=== PATIENT | female | born 1985 | race Caucasian/White ===

== ENCOUNTER 2016-08-01 00:39 | Observation (INO) | payer OTHER ==
[2016-08-01 02:19] LABS: BASO # 0.1 K/uL (0.0-0.2); BASO % 0.8 % (0.0-2.0); EOS # 0.6 K/uL (0.0-0.7); EOS % 5.7 % (0.0-4.0); HEMATOCRIT 36.4 % (34.0-47.0); LYMPH # 3.4 K/uL (1.0-4.3); LYMPH % 35.2 % (20.0-40.0); MEAN CELL VOLUME 81.3 fL (81.0-99.0); MEAN PLATELET VOLUME 7.9 fL (7.2-11.7); MONO # 0.4 K/uL (0.0-0.8); MONO % 4.2 % (0.0-10.0); NRBC % 0.1 % (0.0-2.0); RED CELL DISTRIBUTION WIDTH 21.1 % (11.5-14.5); WHITE BLOOD COUNT 9.7 K/uL (4.8-10.8)
[2016-08-01 02:21] LABS: RBC URINE 1 /hpf (0-3); URINE BILIRUBIN NEGATIVE (NEGATIVE); URINE BLOOD NEGATIVE (NEGATIVE); URINE COLOR Straw (YELLOW); URINE GLUCOSE (UA) NORMAL (Normal); URINE KETONE NEGATIVE (NEGATIVE); URINE LEUKOCYTE ESTERASE NEG Leu/uL (Negative); URINE PROTEIN NEGATIVE (NEGATIVE); URINE UROBILINOGEN NORMAL mg/dL (0.2-1.0); WBC URINE 1 /hpf (0-5)
[2016-08-01 02:26] LABS: CHLORIDE 101 mmol/L (98-107); SODIUM 138 mmol/L (132-148)
[2016-08-01 02:28] LABS: GFR AFRICAN-AMERICAN > 60
[2016-08-01 02:29] LABS: ALB/GLOB RATIO 1.3 (1.0-2.1); ALKALINE PHOSPHATASE 100 U/L (38-126); ALT/SGPT 23 U/L (9-52); AST/SGOT 19 U/L (14-36); BILIRUBIN,TOTAL 0.6 mg/dL (0.2-1.3); BLOOD UREA NITROGEN 14 mg/dL (7-17); CALCIUM 8.8 mg/dl (8.6-10.4); CARBON DIOXIDE 26 mmol/L (22-30); GLUCOSE,RANDOM 116 mg/dL (65-105); TOTAL PROTEIN 7.4 g/dL (6.3-8.3)
--- NOTE | 2016-08-01 03:58 | RAD ---
EXAM: XR Chest, 1 View CLINICAL HISTORY: 31 years old, female; Signs and symptoms; Shortness of breath; Additional info: SOB TECHNIQUE: Frontal view of the chest. COMPARISON: No relevant prior studies available. FINDINGS: The cardiomediastinal silhouette is partially obscured, and shifted to the right of midline. Elevation of the left hemidiaphragm is identified with multiple loops of dilated bowel present. The remainder of the lungs are otherwise clear. No subdiaphragmatic free air or pneumothorax. The trachea extends to the right of midline. IMPRESSION: Elevation of the left hemidiaphragm. Mass effect on the cardiac silhouette, which extends to the right of midline. Comparison with prior imaging is recommended.
--- NOTE | 2016-08-01 04:04 | C.PDOC ---
History Of Present Illness 31 year old female presents to the ED with complaints of shortness of breath. Patient is two months . As per , patient experienced shortness of breath episodes while and when [place] [facility] [place] told symptoms were due to however she is now experiencing similar symptoms of shortness of breath. Patient denies chest pain, breast feeding, or any other complaints at this time. Time Seen by Provider: 08/01/16 01:04 Chief Complaint (Nursing): Shortness Of Breath History Per: Patient History/Exam Limitations: no limitations Onset/Duration Of Symptoms: Persistent Current Symptoms Are (Timing): Still Present Associated Symptoms: denies: Fever, Chills, Sweating Recent travel outside of the [place]: No Past Medical History Reviewed: Historical Data, Nursing Documentation, Vital Signs Vital Signs: Last Vital Signs Temp 97.9 F 08/01/16 04:20 Pulse 64 08/01/16 04:20 Resp 18 08/01/16 04:20 BP 126/87 08/01/16 04:20 Pulse Ox 98 08/01/16 06:26 Family History: States: No Known Family Hx - Social History Hx Alcohol Use: No Hx Substance Use: No - Immunization History Hx Tetanus Toxoid Vaccination: No Hx Influenza Vaccination: No Hx Pneumococcal Vaccination: No Review Of Systems Constitutional: Negative for: Fever, Chills, Sweats Cardiovascular: Negative for: Chest Pain, Palpitations Respiratory: Positive for: Shortness of Breath. Negative for: Cough Gastrointestinal: Negative for: Nausea, Vomiting, Abdominal Pain, Diarrhea Genitourinary: Negative for: Dysuria Physical Exam - Physical Exam Appears: Non-toxic, No Acute Distress Skin: Warm, Dry Head: Atraumatic Oral Mucosa: Moist Neck: Supple Chest: Symmetrical, No Deformity Cardiovascular: Rhythm Regular Respiratory: No Rales, No Rhonchi, No Stridor, No Wheezing Gastrointestinal/Abdominal: Soft, No Tenderness, No Distention, No Guarding, No Rebound Extremity: Normal ROM, No Tenderness Neurological/Psych: Oriented x3 ED Course And Treatment - Laboratory Results Result Diagrams: 08/01/16 02:13 08/01/16 02:13 Interpretation Of ECG: Sinus arrythmia Rate From EC O2 Sat by Pulse Oximetry: 98 (room air ) - CT Scan/US XRAY chest frontal Other Rad Studies (CT/US): Read By Radiologist, Radiology Report Reviewed CT ABDOMEN/PELVIS W CONTRAST Other Rad Studies (CT/US): Read By Radiologist, Radiology Report Reviewed CT/US Interpretation: EXAM: CT Abdomen and Pelvis With Intravenous Contrast. CLINICAL HISTORY: 31 years old, female; Signs and symptoms; Other: S. O. B. ; Shortness of breath; Patient HX: Post. x1 month ago; Additional info: Post SOB. TECHNIQUE: Axial computed tomography images of the abdomen and pelvis with intravenous contrast. This CT. exam was performed using one or more of the following dose reduction techniques: automated. exposure control, adjustment of the mA and/or kV according to patient size, and/or use of iterative. reconstruction technique. Coronal and sagittal reformatted images were created and reviewed. CONTRAST: 100 mL of VISIPAQUE administered intravenously. COMPARISON: No relevant prior studies available. FINDINGS: Lower thorax: No acute findings. ABDOMEN: Liver: Unremarkable. No mass. Gallbladder and bile ducts: Unremarkable. No calcified stones. No ductal dilation. Pancreas: Unremarkable. No mass. No ductal dilation. Spleen: Unremarkable. No splenomegaly. Adrenals: Unremarkable. No mass. Kidneys and ureters: Unremarkable. No solid mass. No hydronephrosis. Stomach and bowel: Mild/moderate fecal retention with a few air-fluid levels suggesting a colonic. ileus. Appendix: No findings to suggest acute appendicitis. PELVIS: Bladder : Unremarkable. No mass. Reproductive: Unremarkable as visualized. ABDOMEN and PELVIS: Intraperitoneal space: Unremarkable. No free air. No significant fluid collection. Bones/joints: No acute fracture. No dislocation. Soft tissues: Unremarkable. Vasculature: Unremarkable. No abdominal aortic aneurysm. Lymph nodes: Unremarkable. No enlarged lymph nodes. IMPRESSION: Mild/moderate fecal retention with a few air-fluid levels suggesting a colonic ileus. CT CHEST W IV CONTRAST Other Rad Studies (CT/US): Read By Radiologist, Radiology Report Reviewed CT/US Interpretation: EXAM: CT Chest With Intravenous Contrast. CLINICAL HISTORY: 31 years old, female; Signs and symptoms; Other: S. O. B. ; Shortness of breath; Patient HX: Post. x1 month ago; Additional info: Post SOB. TECHNIQUE: Axial computed tomography images of the chest with intravenous contrast. This CT exam was. performed using one or more of the following dose reduction techniques: automated exposure. control, adjustment of the mA and/or kV according to patient size, and/or use of iterative. reconstruction technique. Coronal and sagittal reformatted images were created and reviewed. CONTRAST: 100 mL of VISIPAQUE administered intravenously. EXAM DATE/TIME: Exam ordered 08/01/2016 4:08 AM. COMPARISON: CR - CHEST PORTABLE 3:05:37 AM. FINDINGS: Lungs: Atelectasis in the right middle lobe. Pleural space: Unremarkable. No pneumothorax. No significant effusion. Heart: Unremarkable. No cardiomegaly. No significant pericardial effusion. Bones/ joints: Unremarkable. No acute fracture. No dislocation. Soft tissues: Unremarkable. Vasculature: Unremarkable. No thoracic aortic aneurysm. Lymph nodes: Unremarkable. No enlarged lymph nodes. Upper abdomen: Elevated left hemidiaphragm. IMPRESSION: No acute findings. Progress Note: EXAM: XR Chest, 1 View. CLINICAL HISTORY: 31 years old, female ; Signs and symptoms; Shortness of breath; Additional info: SOB. TECHNIQUE: Frontal view of the chest. COMPARISON: No relevant prior studies available. FINDINGS: The cardiomediastinal silhouette is partially obscured, and shifted to the right of midline. Elevation of. the left hemidiaphragm is identified with multiple loops of dilated bowel present. The remainder of the lungs are otherwise clear. No subdiaphragmatic free air or pneumothorax. The trachea extends to the right of midline. IMPRESSION: Elevation of the left hemidiaphragm. Mass effect on the cardiac silhouette, which extends to the right of midline. Comparison with prior imaging is recommended. Case was d/w pt's PMD who instructed to admit patient to 's service. Patient initially refused to be admitted. However after reviewing AMA form patient changed her mind and agreed to stay in the Hospital. Admitting informed us that is on the blue list. requested to be contacted. requested patient to be admitted to hospitalist service. Case was d/w who accepted patient to regular floor for observation. H &P will be done by the morning shift. Disposition - Disposition Referrals: Jimi Pizarro MD [Staff Provider] - Disposition: HOSPITALIZED Disposition Time: 06:03 Condition: FAIR Additional Instructions: Follow up with your PMD within 1-2 days. Return to ED immediately if feel worse. Instructions: Ileus (ED) - Clinical Impression Clinical Impression: Ileus, Dyspnea - Scribe Statement The provider has reviewed the documentation as recorded by the Chakaibe Alise Urban All medical record entries made by the Chakaibe were at my direction and personally dictated by me. I have reviewed the chart and agree that the record accurately reflects my personal performance of the history, physical exam, medical decision making, and the department course for this patient. I have also personally directed, reviewed, and agree with the discharge instructions and disposition. Decision To Admit - Pt Status Changed To: Hospital Disposition Of: Observation - . Bed Request Type: Regular Admitting Physician: Mychal Prasad Patient Diagnosis: Ileus, Dyspnea
[2016-08-01] MEDS ORDERED: Iodixanol 320 MG/ML 100 ML BOTTLE IV ONE (04:30)
[2016-08-01] MEDS ORDERED: Magnesium Citrate Oral SOL (300 ml) PO STA (06:48)
[2016-08-01] MEDS ORDERED: Magnesium Citrate Oral SOL (300 ml) ONE (07:10)
[2016-08-01 07:35] VITALS: RESP 20
--- NOTE | 2016-08-01 08:18 | CP.PCM.HP ---
<Genaro Lopez - Last Filed: 08/01/16 09:17> History of Present Illness - History of Present Illness History of Present Illness: CC: "Shortness of breath" HPI: Pt is a 31 year old F with a PMHx of anemia who presents to the ED with complaints of shortness of breath for a duration of 2 days. Pt reports that she has never experienced these symptoms before. She reports that that her symptoms are worse at night. Pt reports that she was not doing anything when the symptoms began. She denies having a cough, but reports that she has phlegm in her throat. Pt also reports that her legs have gotten more swollen. Pt denies fever, chills, chest pain, nausea, vomiting, diarrhea, dysuria, headache , dizziness. PMD: Dr. Pizarro PMHx: Anemia Home medications: Iron tablets 3x/day Past Surgical Hx: denies Allergies: NKDA Social Hx: denies hx of tobacco, alcohol, drug abuse Family Hx: denies any significant family hx Present on Admission - Present on Admission Any Indicators Present on Admission: No Review of Systems - Constitutional Constitutional: absent: Chills, Fever - EENT Ears: absent: Decreased Hearing, Dizziness - Cardiovascular Cardiovascular: Dyspnea, Leg Edema. absent: Chest Pain, Palpitations - Respiratory Respiratory: Dyspnea. absent: Cough, Hemoptysis, Wheezing - Gastrointestinal Gastrointestinal: absent: Abdominal Pain, Diarrhea, Hematochezia, Nausea, Vomiting - Genitourinary Genitourinary: absent: Dysuria - Musculoskeletal Musculoskeletal: absent: Atrophy, Back Pain - Neurological Neurological: absent: Dizziness, Headaches - Psychiatric Psychiatric: absent: Confusion - Hematologic/Lymphatic Hematologic: absent: Easy Bleeding, Easy Bruising Past Patient History - Past Social History Smoking Status: Never Smoked - PSYCHIATRIC Hx Substance Use: No Meds Allergies/Adverse Reactions: Allergies Allergy/AdvReac Type Severity Reaction Status Date / Time No Known Allergies Allergy Unverified 08/01/16 00:51 Physical Exam - Constitutional Appears: No Acute Distress - Head Exam Head Exam: ATRAUMATIC, NORMOCEPHALIC - Eye Exam Eye Exam: EOMI, PERRL - ENT Exam ENT Exam: Mucous Membranes Moist. absent: Mucous Membranes Dry - Respiratory Exam Respiratory Exam: Clear to Auscultation Bilateral. absent: Rales, Rhonchi, Wheezes - Cardiovascular Exam Cardiovascular Exam: +S1, +S2. absent: Gallop, Rubs, Systolic Murmur - GI/Abdominal Exam GI & Abdominal Exam: Soft. absent: Distended, Rebound, Tenderness Additional comments: Absent bowel sounds on left side - Extremities Exam Extremities exam: Positive for: full ROM. Negative for: pedal edema, tenderness - Neurological Exam Neurological exam: Alert, Oriented x3 - Psychiatric Exam Psychiatric exam: Normal Affect, Normal Mood - Skin Skin Exam: Normal Color, Warm Results - Vital Signs Recent Vital Signs: Last Vital Signs Temp 98.0 F 08/01/16 07:22 Pulse 60 08/01/16 07:22 Resp 20 08/01/16 07:22 BP 111/77 08/01/16 07:22 Pulse Ox 99 08/01/16 07:22 - Labs Result Diagrams: 08/01/16 02:13 08/01/16 02:13 Labs: Laboratory Results - last 24 hr 08/01/16 08/01/16 08/01/16 02:13 02:13 02:13 WBC 9.7 RBC 4.48 Hgb 11.7 Hct 36.4 MCV 81.3 MCH 26.0 L MCHC 32.0 L RDW 21.1 H Plt Count 299 MPV 7.9 Neut % (Auto) 54.1 Lymph % (Auto) 35.2 Motley % (Auto) 4.2 Eos % (Auto) 5.7 H Baso % (Auto) 0.8 Neut # 5.2 Lymph # 3.4 Motley # 0.4 Eos # 0.6 Baso # 0.1 PT 11.4 INR 1.0 APTT 30 D-Dimer, Quantitative 188 Sodium Potassium Chloride Carbon Dioxide Anion Gap BUN Creatinine Est GFR ( Amer) Est GFR (Non-Af Amer) Random Glucose Calcium Total Bilirubin AST ALT Alkaline Phosphatase Total Creatine Kinase CK-MB (Mass) Troponin I NT-Pro-B Natriuret Pep Total Protein Albumin Globulin Albumin/Globulin Ratio Urine Color Straw Urine Clarity Clear Urine pH 6.0 Ur Specific [place]ill[place] 1.014 Urine Protein Negative Urine Glucose (UA) Normal Urine Ketones Negative Urine Blood Negative Urine Nitrate Negative Urine Bilirubin Negative Urine Urobilinogen Normal Ur Leukocyte Esterase Neg Urine WBC (Auto) 1 Urine RBC (Auto) 1 Ur Squamous Epith Cells 3 Urine HCG, Qual Negative 08/01/16 02:13 WBC RBC Hgb Hct MCV MCH MCHC RDW Plt Count MPV Neut % (Auto) Lymph % (Auto) Motley % (Auto) Eos % (Auto) Baso % (Auto) Neut # Lymph # Motley # Eos # Baso # PT INR APTT D-Dimer, Quantitative Sodium 138 Potassium 4.0 Chloride 101 Carbon Dioxide 26 Anion Gap 15 BUN 14 Creatinine 0.6 L Est GFR ( Amer) > 60 Est GFR (Non-Af Amer) > 60 Random Glucose 116 H Calcium 8.8 Total Bilirubin 0.6 AST 19 ALT 23 Alkaline Phosphatase 100 Total Creatine Kinase 45 CK-MB (Mass) < 0.22 Troponin I < 0.0120 NT-Pro-B Natriuret Pep 55.2 Total Protein 7.4 Albumin 4.1 Globulin 3.2 Albumin/Globulin Ratio 1.3 Urine Color Urine Clarity Urine pH Ur Specific [place] Urine Protein Urine Glucose (UA) Urine Ketones Urine Blood Urine Nitrate Urine Bilirubin Urine Urobilinogen Ur Leukocyte Esterase Urine WBC (Auto) Urine RBC (Auto) Ur Squamous Epith Cells Urine HCG, Qual Assessment & Plan - Assessment and Plan (Free Text) Assessment: Dyspnea: Afebrile, nontachycardic No leukocytosis D-dimer 188 CXR- elevation of the left hemidiaphragm, multiple loops of dilated bowel, mass effect on the cardiac silhouette which extends to the right of the midline, no subdiaphragmatic free air or penumothorax (please see full report) EKG- NSR, sinus arrythmia (please see full report) Cardiac enzymes negative x 1 Serial Cardiac enzymes pending Lower extremity dopplers pending Echocardiogram pending Colonic Ileus: Abd/Pelvis CT - mild/moderate fecal retention with a few air-fluid levels suggesting a colonic ileus (please see full report on v-rads) Pt reports that she is having regular bowel movements, with her last bowel movement being last night NS IVF 125 cc/hr Prophylactic Measures: DVT: Lovenox 40 mg sc qd, SCDs contraindicated pending venous dopplers GI: Protonix 40 mg po qd <Chris Snow - Last Filed: 08/01/16 12:18> Results - Vital Signs Recent Vital Signs: Last Vital Signs Temp 97.9 F 08/01/16 09:47 Pulse 66 08/01/16 09:47 Resp 20 08/01/16 09:47 BP 110/75 08/01/16 09:47 Pulse Ox 95 08/01/16 09:47 - Labs Result Diagrams: 08/01/16 02:13 08/01/16 02:13 Labs: Laboratory Results - last 24 hr 08/01/16 09:46 Total Creatine Kinase 43 CK-MB (Mass) < 0.22 Troponin I, Quant < 0.0120 Attending/Attestation - Attestation I have personally seen and examined this patient.: Yes I have fully participated in the care of the patient.: Yes I have reviewed all pertinent clinical information: Yes Notes (Text): Medical Attending: Agree with the above note by the resident. Came and saw patient in the ER with resident in bed 11. She looks well. Not in any distress. She explains she came in with shortness of breath and C/P - which have resolved when I have seen here. She had a vaginal delivery about 1 1/2 month ago, she explains to us there was no complications. Per review of CT the left diaphragm looks higher. I do not hear bowl sounds on the lung exam Her lab work is very stable. Vital signs ok as well. Cardiac enzymes ok. The patient has some stool on the CT. The overnight report suggest illeus - when we asked her she says she does not have pain when eating and last BM was ok last night - she says she does not think she is having any bowel problems. She looks very well, I explained to her that probably will be DC soon. thank you Chris Snow
[2016-08-01] MEDS: Sodium Chloride 0.9% 1,000 ML IV SCH ×2 (09:40→18:35)
[2016-08-01] MEDS ORDERED: Sodium Chloride 0.9% 1,000 ML ONE (09:44)
[2016-08-01] MEDS: Pantoprazole 40 mg EC Tab PO SCH (10:45)
[2016-08-01] MEDS: Enoxaparin 40 mg Syringe SC SCH (10:45)
--- NOTE | 2016-08-01 13:45 | CT ---
CT chest abdomen and pelvis History: pain. Shortness of breath. Comparison: None available. Technique: Axial computed tomographic images of the chest abdomen pelvis were performed with intravenous contrast. Subsequently, sagittal and coronal reformatted images were obtained. This CT exam was performed using one or more of the following dose reduction techniques: Automated exposure control, adjustment of the mA and/or kV according to patient size, and/or use of iterative reconstruction technique. Findings: Atelectasis in the right middle lobe. Mild lingular atelectasis. No pleural effusion or pneumothorax. Visualized aorta is preserved. Please note this was not designated as a pulmonary embolism study and evaluation for emboli are limited on this study. Visualized soft tissues appear preserved. No significant lymphadenopathy. Elevated left hemidiaphragm. Liver and gallbladder appear preserved. Pancreas and spleen appear preserved. Adrenal glands appear preserved. Kidneys and ureters appear preserved. Mild to moderate fecal retention in the colon with a few air-fluid levels suggesting a colonic ileus. A few scattered areas of underdistention and or mild thickening of the colon. No findings to suggest acute appendicitis. changes in the uterus and pelvis. No significant abdominal or pelvic lymphadenopathy. Osseous structures are grossly preserved. Hemisacralization of the left L5 vertebral body. Impression: Mild to moderate fecal retention in the colon with a few air-fluid levels in the colon suggestive for a colonic ileus. Additional findings as above. If there is concern for pulmonary emboli, correlation with a dedicated CT chest pulmonary angiogram is recommended for further evaluation. These findings were preliminarily reported at 5:48 a.m. on 08/01/[address] Singh Landaverde from [employer].
[2016-08-01 17:07] VITALS: O2SAT 97
[2016-08-01 17:42] LABS: BASO % 0.5 % (0.0-2.0); EOS # 0.5 K/uL (0.0-0.7); EOS % 6.1 % (0.0-4.0); HEMATOCRIT 37.8 % (34.0-47.0); LYMPH # 3.4 K/uL (1.0-4.3); LYMPH % 40.3 % (20.0-40.0); MEAN CELL VOLUME 81.2 fL (81.0-99.0); MEAN CORPUSCULAR HEMOGLOBIN 26.1 pg (27.0-31.0); MEAN CORPUSCULAR HGB CONC 32.2 g/dL (33.0-37.0); MEAN PLATELET VOLUME 8.4 fL (7.2-11.7); MONO # 0.5 K/uL (0.0-0.8); MONO % 6.2 % (0.0-10.0); RED CELL DISTRIBUTION WIDTH 21.3 % (11.5-14.5); WHITE BLOOD COUNT 8.5 K/uL (4.8-10.8)
[2016-08-02 06:30] LABS: CHLORIDE 102 mmol/L (98-107); POTASSIUM 4.2 mmol/L (3.6-5.2); SODIUM 136 mmol/L (132-148)
[2016-08-02 06:32] LABS: AST/SGOT 19 U/L (14-36); BILIRUBIN,TOTAL 0.6 mg/dL (0.2-1.3); CARBON DIOXIDE 24 mmol/L (22-30); GFR AFRICAN-AMERICAN > 60
[2016-08-02 06:33] LABS: ALB/GLOB RATIO 1.3 (1.0-2.1); ALKALINE PHOSPHATASE 87 U/L (38-126); ALT/SGPT 14 U/L (9-52); BLOOD UREA NITROGEN 12 mg/dL (7-17); CALCIUM 8.5 mg/dl (8.6-10.4); GLUCOSE,RANDOM 86 mg/dL (65-105); TOTAL PROTEIN 6.7 g/dL (6.3-8.3)
[2016-08-02 06:34] LABS: MAGNESIUM 2.1 mg/dL (1.6-2.3)
[2016-08-02 07:37] VITALS: BP 102/68; PULSE 66; TEMP 97.6
[2016-08-02] MEDS: Enoxaparin 40 mg Syringe SC SCH (09:32)
[2016-08-02] MEDS: Pantoprazole 40 mg EC Tab PO SCH (09:32)
[2016-08-02] MEDS: Sodium Chloride 0.9% 1,000 ML IV SCH (09:34)
--- NOTE | 2016-08-02 10:57 | VASCLAB ---
PROCEDURE: Lower Extremity Venous Duplex Exam. HISTORY: Shortness of breath, r/o DVT PRIORS: None. TECHNIQUE: Bilateral common femoral, femoral, popliteal and posterior tibial, peroneal and great saphenous veins were evaluated. Flow was assessed with color Doppler, compressibility, assessment of phasic flow and augmentation response. Report prepared by WESLEY Vieyra head loft worker. FINDINGS: RIGHT: 1. Common Femoral Vein: 1.1. Compressibility - Fully compressible: Thrombus - None : Flow - Phasic: Augmentation -Normal: Reflux - None. 2. Femoral Vein: 2.1. Compressibility - Fully compressible: Thrombus - None : Flow - Phasic: Augmentation -Normal: Reflux - None. 3. Popliteal Vein: 3.1. Compressibility - Fully compressible: Thrombus - None : Flow - Phasic: Augmentation -Normal: Reflux - None. 4. Posterior Tibial Vein: 4.1. Compressibility - Fully compressible: Thrombus - None: Flow - Phasic: Augmentation -Normal: Reflux - None. 5. Peroneal Vein: 5.1. Compressibility - Fully compressible: Thrombus - None: Flow - Phasic: Augmentation -Normal: Reflux - None. 6. Great Saphenous Vein: 6.1. Compressibility - Fully compressible: Thrombus - None: Flow - Phasic: Augmentation - Normal: Reflux - None. LEFT: 1. Common Femoral Vein: 1.1. Compressibility - Fully compressible: Thrombus - None: Flow - Phasic: Augmentation -Normal: Reflux - None. 2. Femoral Vein: 2.1. Compressibility - Fully compressible: Thrombus - None: Flow - Phasic: Augmentation -Normal: Reflux - None. 3. Popliteal Vein: 3.1. Compressibility - Fully compressible: Thrombus - None : Flow - Phasic: Augmentation -Normal: Reflux - None. 4. Posterior Tibial Vein: 4.1. Compressibility - Fully compressible: Thrombus - None: Flow - Phasic: Augmentation -Normal: Reflux - None. 5. Peroneal Vein: 5.1. Compressibility - Fully compressible: Thrombus - None: Flow - Phasic: Augmentation -Normal: Reflux - None. 6. Great Saphenous Vein: 6.1. Compressibility - Fully compressible: Thrombus - None: Flow - Phasic: Augmentation - Normal: Reflux - None. OTHER FINDINGS: Right: None significant. Left: None significant. IMPRESSION: Right: No evidence of deep or superficial vein thrombosis of the right lower extremity. Normal valve function noted of the right side. Left: No evidence of deep or superficial vein thrombosis of the left lower extremity. Normal valve function noted of the left side.
--- NOTE | 2016-08-02 11:41 | CP.PCM.DIS ---
<Rosa Tan - Last Filed: 08/02/16 15:34> Provider - Provider Date of Admission: 08/01/16 08:46 Attending physician: Chris Snow DO Time Spent in preparation of Discharge (in minutes): 45 Hospital Course - Lab Results Lab Results: Most Recent Lab Values WBC 8.5 K/uL (4.8-10.8) 08/01/16 17:25 RBC 4.65 Mil/uL (3.80-5.20) 08/01/16 17:25 Hgb 12.2 g/dL (11.0-16.0) 08/01/16 17: Hct 37.8 % (34.0-47.0) 08/01/16: MCV 81.2 fL (81.0-99.0) 08/01/16: MCH 26.1 pg (27.0-31.0) L 08/01/16: MCHC 32.2 g/dL (33.0-37.0) L 08/01/16: RDW 21.3 % (11.5-14.5) H 08/01/16 17:25 Plt Count 297 K/uL (130-400) 08/01/16 17:25 MPV 8.4 fL (7.2-11.7) 08/01/16 17: Neut % (Auto) 46.9 % (50.0-75.0) L 08/01/16: Lymph % (Auto) 40.3 % (20.0-40.0) H 08/01/16 17:25 [place] % (Auto) 6.2 % (0.0-10.0) 08/01/16 17:25 Eos % (Auto) 6.1 % (0.0-4.0) H 08/01/16 17:25 Baso % (Auto) 0.5 % (0.0-2.0) 08/01/16: Neut # 4.0 K/uL (1.8-7.0) 08/01/16 17: Lymph # 3.4 K/uL (1.0-4.3) 08/01/16 17: Irion # 0.5 K/uL (0.0-0.8) 08/01/16 17:25 Eos # 0.5 K/uL (0.0-0.7) 08/01/16 17:25 Baso # 0.0 K/uL (0.0-0.2) 08/01/16 17:25 PT 11.4 SECONDS (9.7-12.2) 08/01/16 02:13 INR 1.0 08/01/16 02:13 APTT 34 SECONDS (21-34) 08/01/16 17:25 D-Dimer, Quantitative 188 ng/mlDDU (0-243) 08/01/16 02:13 Sodium 136 mmol/L (132-148) 08/02/16 05:59 Potassium 4.2 mmol/L (3.6-5.2) 08/02/16 05:59 Chloride 102 mmol/L (98-107) 08/02/16 05:59 Carbon Dioxide 24 mmol/L (22-30) 08/02/16 05:59 Anion Gap 14 (10-20) 08/02/16 05:59 BUN 12 mg/dL (7-17) 08/02/16 05:59 Creatinine 0.6 MG/DL (0.7-1.2) L 08/02/16 05:59 Est GFR ( Amer) > 60 08/02/16 05:59 Est GFR (Non-Af Amer) > 60 08/02/16 05:59 Random Glucose 86 mg/dL (65-105) 08/02/16 05:59 Calcium 8.5 mg/dl (8.6-10.4) L 08/02/16 05:59 Phosphorus 4.0 mg/dL (2.5-4.5) 08/02/16 05:59 Magnesium 2.1 mg/dL (1.6-2.3) 08/02/16 05:59 Total Bilirubin 0.6 mg/dL (0.2-1.3) 08/02/16 05:59 AST 19 U/L (14-36) 08/02/16 05:59 ALT 14 U/L (9-52) 08/02/16 05:59 Alkaline Phosphatase 87 U/L (38-126) 08/02/16 05:59 Total Creatine Kinase 44 U/L (30-135) 08/01/16 17:25 CK-MB (Mass) < 0.22 ng/mL (0.0-3.38) 08/01/16 17:25 Troponin I < 0.0120 ng/mL (0.00-0.120) 08/01/16 02:13 Troponin I, Quant < 0.0120 ng/mL (0.00-0.120) 08/01/16 17:25 NT-Pro-B Natriuret Pep 55.2 pg/mL (0-450) 08/01/16 02:13 Total Protein 6.7 g/dL (6.3-8.3) 08/02/16 05:59 Albumin 3.7 g/dL (3.5-5.0) 08/02/16 05:59 Globulin 3.0 gm/dL (2.2-3.9) 08/02/16 05:59 Albumin/Globulin Ratio 1.3 (1.0-2.1) 08/02/16 05:59 Urine Color Straw (YELLOW) 08/01/16 02:13 Urine Clarity Clear (Clear) 08/01/16 02:13 Urine pH 6.0 (5.0-8.0) 08/01/16 02:13 Ur Specific [place] 1.014 (1.003-1.030) 08/01/16 02:13 Urine Protein Negative mg/dL (NEGATIVE) 08/01/16 02:13 Urine Glucose (UA) Normal mg/dL (Normal) 08/01/16 02:13 Urine Ketones Negative mg/dL (NEGATIVE) 08/01/16 02:13 Urine Blood Negative (NEGATIVE) 08/01/16 02:13 Urine Nitrate Negative (NEGATIVE) 08/01/16 02:13 Urine Bilirubin Negative (NEGATIVE) 08/01/16 02:13 Urine Urobilinogen Normal mg/dL (0.2-1.0) 08/01/16 02:13 Ur Leukocyte Esterase Neg Graciela/uL (Negative) 08/01/16 02:13 Urine WBC (Auto) 1 /hpf (0-5) 08/01/16 02:13 Urine RBC (Auto) 1 /hpf (0-3) 08/01/16 02:13 Ur Squamous Epith Cells 3 /hpf (0-5) 08/01/16 02:13 Urine HCG, Qual Negative (NEGATIVE) 08/01/16 02:13 - Hospital Course Hospital Course: Upon Admission: CC: "Shortness of breath" HPI: Pt is a 31 year old F with a PMHx of anemia who presents to the ED with complaints of shortness of breath for a duration of 2 days. Pt reports that she has never experienced these symptoms before. She reports that that her symptoms are worse at night. Pt reports that she was not doing anything when the symptoms began. She denies having a cough, but reports that she has phlegm in her throat. Pt also reports that her legs have gotten more swollen. Pt denies fever, chills, chest pain, nausea, vomiting, diarrhea, dysuria, headache , dizziness. PMD: Dr. Pizarro PMHx: Anemia Home medications: Iron tablets 3x/day Past Surgical Hx: denies Allergies: NKDA Social Hx: denies hx of tobacco, alcohol, drug abuse Family Hx: denies any significant family hx Throughout Hospital Course: Patient was admitted to evaluate for dyspnea. CXR showed: elevation of the left hemidiaphragm, multiple loops of dilated bowel, mass effect on the cardiac silhouette which extends to the right of the midline, no subdiaphragmatic free air or penumothorax (please see full report). EKG, cardiac enzymes, were negative. D-dimer was negative, dopplers of her lower extremity were negative, and a CT of abdomen and pelvis showed mild illeus. Patient reports feeling better. Encouraged to follow up with her PMD and continue her iron supplements. Patient stated she understood and agrees with instructions. This is a short summary of the patient's hospital course. Please review medical record for completion. Discharge Exam - Head Exam Head Exam: ATRAUMATIC, NORMOCEPHALIC - Eye Exam Eye Exam: Normal appearance - ENT Exam ENT Exam: Mucous Membranes Moist - Respiratory Exam Respiratory Exam: Clear to PA & Lateral, NORMAL BREATHING PATTERN. absent: Decreased Breath Sounds, Wheezes - Cardiovascular Exam Cardiovascular Exam: REGULAR RHYTHM, RRR, +S1, +S2 - GI/Abdominal Exam GI & Abdominal Exam: Normal Bowel Sounds, Soft. absent: Distended, Tenderness - Extremities Exam Extremities exam: normal inspection, pedal pulses present - Neurological Exam Neurological exam: Alert, Oriented x3 - Skin Skin Exam: Dry, Intact, Normal Color, Warm Discharge Plan - Follow Up Plan Condition: FAIR Disposition: HOME/ ROUTINE Instructions: Dyspnea (GEN), Ileus (ED) Additional Instructions: Follow up with your PMD, Dr. Pizarro within 1-2 days. Return to ED immediately if feel worse. Continue taking iron supplements as previously prescribed. Referrals: Jimi Pizarro MD [Staff Provider] - <Chris Snow - Last Filed: 08/02/16 16:27> Provider - Provider Date of Admission: 08/01/16 08:46 Attending physician: Chris Snow DO Hospital Course - Lab Results Lab Results: Most Recent Lab Values WBC 8.5 K/uL (4.8-10.8) 08/01/16 17:25 RBC 4.65 Mil/uL (3.80-5.20) 08/01/16 17:25 Hgb 12.2 g/dL (11.0-16.0) 08/01/16 17:25 Hct 37.8 % (34.0-47.0) 08/01/16 17:25 MCV 81.2 fL (81.0-99.0) 08/01/16 17:25 MCH 26.1 pg (27.0-31.0) L 08/01/16 17:25 MCHC 32.2 g/dL (33.0-37.0) L 08/01/16 17:25 RDW 21.3 % (11.5-14.5) H 08/01/16 17:25 Plt Count 297 K/uL (130-400) 08/01/16 17:25 MPV 8.4 fL (7.2-11.7) 08/01/16 17:25 Neut % (Auto) 46.9 % (50.0-75.0) L 08/01/16 17:25 Lymph % (Auto) 40.3 % (20.0-40.0) H 08/01/16 17:25 Irion % (Auto) 6.2 % (0.0-10.0) 08/01/16 17:25 Eos % (Auto) 6.1 % (0.0-4.0) H 08/01/16 17:25 Baso % (Auto) 0.5 % (0.0-2.0) 08/01/16 17:25 Neut # 4.0 K/uL (1.8-7.0) 08/01/16 17:25 Lymph # 3.4 K/uL (1.0-4.3) 08/01/16 17:25 Irion # 0.5 K/uL (0.0-0.8) 08/01/16 17:25 Eos # 0.5 K/uL (0.0-0.7) 08/01/16 17:25 Baso # 0.0 K/uL (0.0-0.2) 08/01/16 17:25 PT 11.4 SECONDS (9.7-12.2) 08/01/16 02:13 INR 1.0 08/01/16 02:13 APTT 34 SECONDS (21-34) 08/01/16 17:25 D-Dimer, Quantitative 188 ng/mlDDU (0-243) 08/01/16 02:13 Sodium 136 mmol/L (132-148) 08/02/16 05:59 Potassium 4.2 mmol/L (3.6-5.2) 08/02/16 05:59 Chloride 102 mmol/L (98-107) 08/02/16 05:59 Carbon Dioxide 24 mmol/L (22-30) 08/02/16 05:59 Anion Gap 14 (10-20) 08/02/16 05:59 BUN 12 mg/dL (7-17) 08/02/16 05:59 Creatinine 0.6 MG/DL (0.7-1.2) L 08/02/16 05:59 Est GFR ( Amer) > 60 08/02/16 05:59 Est GFR (Non-Af Amer) > 60 08/02/16 05:59 Random Glucose 86 mg/dL (65-105) 08/02/16 05:59 Calcium 8.5 mg/dl (8.6-10.4) L 08/02/16 05:59 Phosphorus 4.0 mg/dL (2.5-4.5) 08/02/16 05:59 Magnesium 2.1 mg/dL (1.6-2.3) 08/02/16 05:59 Total Bilirubin 0.6 mg/dL (0.2-1.3) 08/02/16 05:59 AST 19 U/L (14-36) 08/02/16 05:59 ALT 14 U/L (9-52) 08/02/16 05:59 Alkaline Phosphatase 87 U/L (38-126) 08/02/16 05:59 Total Creatine Kinase 44 U/L (30-135) 08/01/16 17:25 CK-MB (Mass) < 0.22 ng/mL (0.0-3.38) 08/01/16 17:25 Troponin I < 0.0120 ng/mL (0.00-0.120) 08/01/16 02:13 Troponin I, Quant < 0.0120 ng/mL (0.00-0.120) 08/01/16 17:25 NT-Pro-B Natriuret Pep 55.2 pg/mL (0-450) 08/01/16 02:13 Total Protein 6.7 g/dL (6.3-8.3) 08/02/16 05:59 Albumin 3.7 g/dL (3.5-5.0) 08/02/16 05:59 Globulin 3.0 gm/dL (2.2-3.9) 08/02/16 05:59 Albumin/Globulin Ratio 1.3 (1.0-2.1) 08/02/16 05:59 Urine Color Straw (YELLOW) 08/01/16 02:13 Urine Clarity Clear (Clear) 08/01/16 02:13 Urine pH 6.0 (5.0-8.0) 08/01/16 02:13 Ur Specific [place] 1.014 (1.003-1.030) 08/01/16 02:13 Urine Protein Negative mg/dL (NEGATIVE) 08/01/16 02:13 Urine Glucose (UA) Normal mg/dL (Normal) 08/01/16 02:13 Urine Ketones Negative mg/dL (NEGATIVE) 08/01/16 02:13 Urine Blood Negative (NEGATIVE) 08/01/16 02:13 Urine Nitrate Negative (NEGATIVE) 08/01/16 02:13 Urine Bilirubin Negative (NEGATIVE) 08/01/16 02:13 Urine Urobilinogen Normal mg/dL (0.2-1.0) 08/01/16 02:13 Ur Leukocyte Esterase Neg Graciela/uL (Negative) 08/01/16 02:13 Urine WBC (Auto) 1 /hpf (0-5) 08/01/16 02:13 Urine RBC (Auto) 1 /hpf (0-3) 08/01/16 02:13 Ur Squamous Epith Cells 3 /hpf (0-5) 08/01/16 02:13 Urine HCG, Qual Negative (NEGATIVE) 08/01/16 02:13 Attending/Attestation - Attestation I have personally seen and examined this patient.: Yes I have fully participated in the care of the patient.: Yes I have reviewed all pertinent clinical information, including history, physical exam and plan: Yes Notes (Text): Medical attending: Patient was seen and examined by me, agrees the above note by front office medical assistant. Today the patient was feeling quite well, we had her walk around with us in the hallway. She was able to stand up and walk on her own without any assistance. She was not short of breath, she did not have chest pain, she did not report palpitations when walking with us. And we were able to walk around the nurse's station and back to her room. Her blood work as a unremarkable, d-dimer is negative, cardiac enzyme negative as well. The patient reported that she had a bowel movement that was normal, she is not nauseous, she doesn't have any vomiting, she tolerated her diet okay Thank you very much, Chris Snow
--- NOTE | 2016-08-02 14:17 | CARD ---
APPROVED REPORT EKG Measurement Heart [id number] <Conclusion> Normal sinus rhythm with sinus arrhythmia Normal ECG
--- NOTE | 2016-08-03 11:04 | CARD ---
APPROVED REPORT EXAM: Two-dimensional and M-mode echocardiogram with Doppler and color Doppler. Other Information Quality : GoodRhythm : NSR INDICATION Dyspnea M-Mode DIMENSIONS Left Atrium (MM)3.48 (2.5-4.0cm)IVSd0.70 (0.7-1.1cm) Aortic Root2.90 (2.2-3.7cm)LVDd4.31 (4.0-5.6cm) Aortic Cusp Exc.1.66 (1.5-2.0cm)PWd1.00 (0.7-1.1cm) FS (%) 30 %LVDs3.04 (2.0-3.8cm) LVEF (%)57 (>50%) Aortic Valve AoV Peak [place]969.4cm/[place] Peak GR.5mmHg Mitral Valve MV E Xdysaxrt74.8cm/sMV A Ygtrnldf43.6cm/sE/A ratio1.1 TDI E/Lateral E'0.0E/Medial E'0.0 Tricuspid Valve TR Peak [id number]/sTR Peak Gr.13gtUlAVMN14dzFm <Conclusion> tds. poor window. la,lv & ra rv size appears normal. normal lv wall motion,thickness,systolic & diastolic function with lvef of 55-60%. aortic leaflets not well seen but probably normal., mitral,tv & pv appears normal. mild tr. no pericardial effusion seen.
[2016-08-04] MEDS ORDERED: Pneumococcal 23-Valent Vaccine IM ONE (10:00)
== END 2016-08-02 14:21 | disposition home or self-care (01) ==
LOC: EDBD 00:39 → C.ER 00:39 → C.9E 08:46 → C.3T 09:51
PROVIDERS: ADMIT Hospitalist; ATTEND Hospitalist
DX: K56.7 Ileus, unspecified (principal); R06.00 Dyspnea, unspecified
CPT/HCPCS: 36415; 71010; 71260; 74177; 80053; 81001; 82550; 82553; 83735; 83880; 84100; 84484; 84703; 85025; 85378; 85610; 85730; 93005; 93306; 93970; 99285; G0378; J1650; J7040; Q9967